=== PATIENT | female | born 1985 | race African-American/Black ===

== ENCOUNTER 2020-10-03 12:39 | Emergency (ER) | payer BC, OTHER ==
[~2020-10-03] VITALS: Ht 162.6 cm; Wt 95.3 kg
[2020-10-03 13:07] VITALS: BP 132/70
[2020-10-03] MEDS ORDERED: IBUPROFEN 800 MG TAB PO ONE (14:45)
== END 2020-10-03 15:10 | disposition home or self-care (01) ==
LOC: ER 12:39
DX: S16.1XXA Strain of muscle, fascia and tendon at neck level, initial encounter (principal); M54.9 Dorsalgia, unspecified; V49.49XA Driver injured in collision with other motor vehicles in traffic accident, initial encounter; Y93.89 Activity, other specified; Y99.8 Other external cause status; Y92.89 Other specified places as the place of occurrence of the external cause
CPT/HCPCS: 72040; 72110